=== PATIENT | female | born 1950 | race Caucasian/White ===

== ENCOUNTER 2016-10-07 19:46 | Inpatient (IN) | payer MEDICARE, OTHER ==
[2016-10-07] MEDS ORDERED: IPRATROPIUM/ALBUTEROL 3 ML VIAL NEB ONE ×2 (20:08→22:24)
--- NOTE | 2016-10-07 20:41 | RAD ---
EXAM DESCRIPTION: Chest,2 Views CLINICAL HISTORY: sob COMPARISON: June 10, 2016 FINDINGS: Cardiac silhouette is within normal limits. Aorta is tortuous. There are calcified breast implants. There is no focal parenchymal or pleural disease. There is no acute osseous process visualized. IMPRESSION: No evidence of acute cardiopulmonary disease. 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
[2016-10-07] MEDS ORDERED: cefTRIAXone SODIUM 1 GM in SODIUM CHL 0.9% 50ML MIN-BAG+ 50 ML IVPB ONE (22:25)
[2016-10-07] MEDS ORDERED: cefTRIAXone SODIUM 1 GM VIAL ONE (22:31)
[2016-10-07] MEDS ORDERED: SODIUM CHL 0.9% 50ML MIN-BAG+ 50 ML IVPB ONE (22:32)
--- NOTE | 2016-10-07 22:36 | ED.PDOC ---
History of Present Illness - General Chief Complaint: Respiratory Problem Stated Complaint: Shortness of breathe Time Seen by Provider: 10/07/16 20:08 Source: patient, family Exam Limitations: no limitations - History of Present Illness Initial Comments: The patient is a 66-year-old female presenting to the emergency room secondary to progressive shortness of breath for the last month. She apparently received a steroid injection as well as some oral antibiotics approximately a month ago from her primary care doctor. She has continued to have cough and progressive shortness of breath that has gotten worse particularly over the last 2 days. She is having a mild headache from it and significant dyspnea on exertion now. No chest pain. No palpitations. No swelling. She does smoke and has smoked for a long time. Timing/Duration: unsure, constant Severity: severe Improving Factors: nothing Worsening Factors: nothing Allergies/Adverse Reactions: Allergies NO KNOWN ALLERGY Allergy (Verified 10/07/16 20:26) Home Medications: Ambulatory Orders Acetaminophen W/ Codeine [Tylenol W/ CODEINE #3] 1 ea PO PRN PRN 10/07/16 Hydrochlorothiazide 12.5 mg PO DAILY 10/07/16 Pregabalin [Lyrica] 150 mg PO TID 10/07/16 Review of Systems - Review of Systems Constitutional: States: fever, malaise EENTM: States: nose congestion Respiratory: States: cough, short of breath, wheezing Cardiology: States: no symptoms reported Gastrointestinal/Abdominal: States: no symptoms reported Genitourinary: States: no symptoms reported Musculoskeletal: States: no symptoms reported Skin: States: no symptoms reported Neurological: States: headache - mild Hematologic/Lymphatic: States: no symptoms reported All other Systems: No Change from Baseline Past Medical History (General) - Patient Medical History Hx Seizures: No Hx Stroke: No Hx Dementia: No Hx Asthma: No Hx of COPD: Yes Hx Cardiac Disorders: No Hx Congestive Heart Failure: No Hx Pacemaker: No Hx Hypertension: Yes Hx Thyroid Disease: No Hx Diabetes: No Hx Gastroesophageal Reflux: No Hx Renal Disease: No Hx of HIV: No Hx MRSA: No Surgical History: no surgical history - Vaccination History Hx Tetanus, Diphtheria Vaccination: No Hx Influenza Vaccination: Yes Hx Pneumococcal Vaccination: No Immunizations Up to Date: Yes - Social History Hx Tobacco Use: Yes - Female History Patient is a Female of Child Bearing Age (10 -59 yrs old): No Family Medical History - Family History Father Living Status: Cause of : CT Physical Exam - Physical Exam General Appearance: Alert, Ill Appearing Eye Exam: bilateral normal Ears, Nose, Throat: hearing grossly normal, nasal congestion, pharyngeal erythema - mild Neck: non-tender, full range of motion, supple Respiratory: chest non-tender, respiratory distress, decreased breath sounds, accessory muscle use, crackles, wheezing Cardiovascular/Chest: normal peripheral pulses, regular rate, rhythm, no edema Peripheral Pulses: radial,right: 2+, radial,left: 2+, dorsalis pedis,right: 2+, dorsalis pedis,left: 2+ Gastrointestinal/Abdominal: non tender, soft Rectal Exam: deferred Back Exam: normal inspection, no CVA tenderness Extremity: normal range of motion, non-tender, normal inspection, no pedal edema , normal capillary refill Neurologic: alert, normal mood/affect, oriented x 3 Skin Exam: normal color Comments: Vital Signs - 24 hr 10/07/16 10/07/16 10/07/16 20:28 20:35 21:26 Temperature 101.7 F H Pulse Rate 87 Pulse Rate [ 84 Right Radial] Respiratory 22 18 22 Rate Blood Pressure 108/64 [Left Arm] O2 Sat by Pulse 81 L 96 Oximetry Progress - Progress Progress: 10/07/16 22:39 the patient is a 66-year-old female presenting to the emergency room secondary to shortness of breath and fever. She does appear to be having a significant COPD exacerbation with likely underlying infection whether viral or bacterial I cannot say at this time. flu test is still pending at this time. She has received a dose of Rocephin. She has also received a dose of Solu- Medrol. She has received several nebulizer treatments and is still significantly oxygen dependent. She is feeling much better with the oxygen on board. She is feeling better after the breathing treatments. Oxygen saturations without oxygen at this time are around 85% on room air. CT scan of the chest per PE protocol was negative for any evidence of a pulmonary embolus. She does have a thyroid nodule that will need follow-up with ultrasound. The patient will be admitted for treatment of the COPD exacerbation with continued antibiotics including Tamiflu if the flu turns up positive. The patient is not to smoke and understands this. critical care time for respiratory distress on this patient and clinical decision making are 35 minutes not including otherwise billable procedures. - Results/Orders Results/Orders: Laboratory Tests 10/07/16 20:09 WBC 3.6 L RBC 4.35 Hgb 13.0 Hct 38.6 MCV 88.7 MCH 29.9 MCHC 33.7 RDW 14.5 Plt Count 115 L MPV 9.3 Absolute Neuts (auto) 2.50 Absolute Lymphs (auto) 0.70 L Absolute Monos (auto) 0.40 Absolute Eos (auto) 0.00 Absolute Basos (auto) 0.00 Neutrophils % 68.5 Lymphocytes % 20.4 Monocytes % 9.7 H Eosinophils % 0.5 L Basophils % 0.9 D-Dimer, Quantitative 1078 H* Sodium 136 Potassium 3.7 Chloride 99 L Carbon Dioxide 29 Anion Gap 11.7 L BUN 17 Creatinine 0.84 BUN/Creatinine Ratio 20.2 H Random Glucose 104 Serum Osmolality 273.8 L Calcium 8.1 L Total Bilirubin 0.6 AST 25 ALT 15 Alkaline Phosphatase 51 Creatine Kinase 286 H* CK-MB (CK-2) 0.7 CK-MB (CK-2) % 0.24 Troponin I 0.02 B-Natriuretic Peptide 132.0 H Serum Total Protein 7.0 Albumin 3.3 Globulin 3.7 H Albumin/Globulin Ratio 0.9 L Chest x-rays consistent with COPD. No overt pneumonia. EKG shows normal sinus rhythm with a slightly delayed R-wave progression. No acute ST segment changes concerning for ischemia. Mild right axis deviation. Departure - Departure Clinical Impression: Hypoxemia, Respiratory distress, COPD bronchitis Disposition: Admit Patient Home Medications: Ambulatory Orders Acetaminophen W/ Codeine [Tylenol W/ CODEINE #3] 1 ea PO PRN PRN 10/07/16 Hydrochlorothiazide 12.5 mg PO DAILY 10/07/16 Pregabalin [Lyrica] 150 mg PO TID 10/07/16 Decision To Admit - Decistion To Admit Decision to Admit Reason: Medical Nature Decision to Admit Date: 10/07/16 Decision to Admit Time: 22:43
[2016-10-07] MEDS ORDERED: IBUPROFEN 200 MG TAB PO ONE (22:38)
[2016-10-07] MEDS ORDERED: LEVALBUTEROL NEBS 1.25 MG/3 ML VIAL INH PRN (23:19)
[2016-10-07] MEDS ORDERED: HYDROcodone 5MG/APAP 325MG 1 EA TAB PO PRN (23:19)
[2016-10-07] MEDS ORDERED: MAGNESIUM HYDROXIDE 30 ML UD PO PRN (23:19)
[2016-10-07] MEDS ORDERED: ONDANSETRON INJ 4 MG/2 ML VIAL IV PRN (23:19)
[2016-10-07] MEDS ORDERED: IV SET AND CAP CHANGE INJ INJ SCH (23:30)
[2016-10-07] MEDS ORDERED: IBUPROFEN 200 MG TAB PO PRN (23:38)
[2016-10-07] MEDS ORDERED: NON-FORMULARY MEDICATION 1 EA MIS (Pregabalin [Lyrica] 150 MG) PO SCH (23:45)
--- NOTE | 2016-10-07 23:57 | PCM.CORE ---
Physician DVT/VTE - Prophylaxis Currently: Patient already on anticoagulation therapy - 3-4 High Risk Treatments: Sequential Compression Device
--- NOTE | 2016-10-08 00:44 | HP ---
HISTORY OF PRESENT ILLNESS: This 66 year-old white female has been getting progressively more ill and sick with shortness of breath and severe cough for the 2 days prior to admission. She had gone to her clinic in [place] and was referred to the Emergency Room because of the severity of her symptoms. In the Emergency Room, she was found to have an elevated D-dimer and had a CT scan of the chest to rule out pulmonary emboli and none was noted. She did have significant hypoxia with room air saturation at rest of 81%. She eventually had an influenza A test that was positive while chest x-ray did not show any acute findings. She is a chronic smoker and is encouraged to stop. She is admitted to the hospital because of the constellation of symptoms as described for specific treatment and for support and followup. PAST MEDICAL HISTORY: 1. Mild hypertension. 2. Chronic obstructive pulmonary disease in a chronic smoker. PAST SURGICAL HISTORY: None. CURRENT MEDICATIONS: See list for list of verified medications taken at home. ALLERGIES: NONE. FAMILY HISTORY: Positive for strokes cancer, coronary artery disease. 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 She has smoked about a pack of cigarettes per day for the last 40 years. REVIEW OF SYSTEMS: No significant weight change but she has had some fever with her current illness. LUNGS: Significant shortness of breath with cough and exertion is difficult because of the dyspnea. CARDIOVASCULAR: Chest tightness and mild achiness in her chest from the cough. No palpitations. GASTROINTESTINAL: Appetite is decreased. No nausea, vomiting or diarrhea. GENITOURINARY: No dysuria. EXTREMITIES: No significant edema. NEUROLOGIC: No focal weaknesses or headache. PHYSICAL EXAMINATION: VITAL SIGNS: Temperature 101.7, pulse 84, blood pressure 108/64, pulse oximetry 81% on room air up to 91% on 3 liters nasal cannula. Weight is 69.8 kilos. GENERAL: The patient is fairly alert and communicative. She felt so ill that she was thinking she was getting ready to "." HEENT: Unremarkable. CHEST: Lungs have diminished breath sounds with some rhonchi more prominent on the right base compared to the left. CARDIOVASCULAR: Heart tones are a little rapid. No significant murmurs. ABDOMEN: Soft. EXTREMITIES: Well formed with good muscle tone. NEUROLOGIC: No focal neurological deficits. The patient is otherwise awake, alert and oriented, and communicative. LABORATORY: White count 3,600 with 68% neutrophils, hemoglobin 13. D-dimer 1, 078. Chemistry showed potassium 3.7, BUN 17, glucose 104, calcium 8.1. CK elevated at 286, troponin 0.02. Beta natriuretic peptide 132, albumin 3.3. Urinalysis is generally clean. Blood cultures obtained and pending. Initial chest x-ray shows no evidence of a cardiopulmonary process. DVT exams are scheduled for tomorrow after the CTA of the chest failed to reveal any significant evidence of pulmonary emboli. ASSESSMENT: 1. Chronic obstructive pulmonary disease with an acute exacerbation. 2. Severe hypoxia requiring oxygen supplementation aggravated by mild exertion. 3. History of hypertension. 4. History of chronic low back pain. 5. History of peripheral neuropathy. 6. Elevated D-dimer with no evidence of deep venous thrombosis at this time. 7. Chronic tobacco abuse, encouraged to stop. 8. Positive Influenza A contributing to the patient's constellation of symptoms. PLAN: The patient is admitted to the hospital under respiratory isolation to have specific treatment and support. She is started on low dose of corticosteroids as well as Rocephin for an underlying possible pneumonia contributing to the hypoxia. She is started on Tamiflu 75 mg b.i.d. for the next 5 days. She will continue on SCDs and Lovenox, and DVT exam in the morning. Close followup necessary. #[id number] [facility]
[2016-10-08] MEDS: IPRATROPIUM/ALBUTEROL 3 ML VIAL INH SCH ×5 (00:55→20:25)
[2016-10-08] MEDS ORDERED: PREGABALIN 75 MG CAP ONE (01:18)
[2016-10-08] MEDS: SODIUM CHLORIDE 0.9% (FLUSH) 10 ML SYG IV PRN ×3 (01:53→21:28)
[2016-10-08] MEDS: methylPREDNISolone SODIUM SUC 40 MG/ML VIAL IV SCH ×3 (01:54→21:30)
[2016-10-08] MEDS: ENOXAPARIN SODIUM 40 MG/0.4 ML SYG SUBCU SCH (01:55)
[2016-10-08] MEDS: OSELTAMIVIR 75 MG CAP PO SCH ×3 (01:56→21:28)
[2016-10-08] MEDS: KCL 20 MEQ/NS 1,000 ML IVS PRN ×2 (01:56→15:58)
[2016-10-08] MEDS: OMEPRAZOLE CAP 20 MG CAP PO SCH (06:57)
[2016-10-08] MEDS ORDERED: SODIUM CHL 0.9% 50ML MIN-BAG+ 50 ML IVPB ONE ×2 (08:46→21:10)
[2016-10-08] MEDS ORDERED: cefTRIAXone SODIUM 1 GM VIAL ONE ×2 (08:46→21:10)
--- NOTE | 2016-10-08 09:37 | US ---
EXAM DESCRIPTION: US LOWER EXTREMITY VEINS LIMITED/UNILATERAL/FOLLOW UP CLINICAL HISTORY: 66 y/o F, hypoxia,elevated d-dimer COMPARISON: None TECHNIQUE: Grayscale, color Doppler and spectral Doppler imaging of the venous structures within the leftlower extremity was performed. Static images were saved to the patient's medical record. FINDINGS: Normal compressibility and color Doppler flow within the venous structures of the left lower extremity. IMPRESSION: Negative for DVT within the left lower extremity. Electronically signed by: Raul Samuels MD 10/08/2016 09:36
--- NOTE | 2016-10-08 09:38 | US ---
EXAM DESCRIPTION: US LOWER EXTREMITY VEINS LIMITED/UNILATERAL/FOLLOW UP CLINICAL HISTORY: 66 y/o F, hypoxia,elevated d-dimer COMPARISON: None TECHNIQUE: Grayscale, color Doppler and spectral Doppler imaging of the venous structures within the rightlower extremity was performed. Static images were saved to the patient's medical record. FINDINGS: Normal compressibility and color Doppler flow within the venous structures of the right lower extremity. IMPRESSION: No evidence of DVT within the right lower extremity. Electronically signed by: Raul Samuels MD 10/08/2016 09:37
[2016-10-08] MEDS: PREGABALIN 75 MG CAP PO SCH ×3 (09:55→21:28)
[2016-10-08] MEDS: cefTRIAXone SODIUM 1 GM in SODIUM CHL 0.9% 50ML MIN-BAG+ 50 ML IVPB SCH ×2 (09:59→21:36)
[2016-10-08] MEDS ORDERED: SODIUM CHLORIDE 0.9% 10 ML VIAL IV PRN (11:17)
--- NOTE | 2016-10-08 16:03 | PN ---
DATE: 10/08/16 SUBJECTIVE: The patient is sitting up in the bed and is feeling much improved today compared to last evening when she was admitted to the hospital. Still with relative hypoxia which will be examined with ambulation studies today. Appetite is improved as well. OBJECTIVE: Afebrile, pulse 62, blood pressure 110/70, pulse oximetry 94% on nasal cannula 3 liters. Weight is stable. The patient is awake and alert, and feeling so good that she wants to even consider going home. Ambulation study is performed and shows resting room air 83% dropping to 78% when walking just to the end of the prater and back. She describes no significant dyspnea or discomfort, but is noticeably somewhat short of breath and the desaturation slowly improved, expiratory after reintroducing her to oxygen therapy. She is on no oxygen at home and will require further investigation. LUNGS: Generally clear except some rales are noted in the right base compared to the left. HEART : Tones regular. ABDOMEN: Soft. LABORATORY: White count is down to 3,200, hemoglobin 13. Chemistry showed potassium 3.9, BUN 22, creatinine 1, glucose 122, calcium 8.1. Blood studies with cultures are negative thus far. ASSESSMENT: 1. Chronic obstructive pulmonary disease with an acute exacerbation. 2. Severe hypoxemia especially aggravated upon gentle exertion. 3. History of hypertension. 4. Chronic low back pain. 5. History of peripheral neuropathy. 6. Elevated D-dimer with no evidence of deep venous thrombosis at this time after ultrasound examination of both lower extremities. 7. Chronic tobacco abuse, encouraged to stop. 8. Influenza A positive currently on Tamiflu for treatment course of 5 days. PLAN: Will reevaluate in the morning with repeat ambulation study to evaluate pulmonary functions. She may eventually require home oxygen to be used to help with tissue oxygenation. The patient has apparently been quite hypoxic for a long time and now has gotten used to it, but hopefully will be able to not get used to it if the condition can be remedied. Reevaluate and continue current IV therapy and treatment course, and reevaluate in the morning. #[id number] [facility]
[2016-10-09] MEDS: ENOXAPARIN SODIUM 40 MG/0.4 ML SYG SUBCU SCH
[2016-10-09] MEDS: KCL 20 MEQ/NS 1,000 ML IVS PRN (04:38)
[2016-10-09] MEDS: OMEPRAZOLE CAP 20 MG CAP PO SCH (06:36)
--- NOTE | 2016-10-09 07:47 | RAD ---
EXAM DESCRIPTION: XR CHEST 2 VIEWS CLINICAL HISTORY: hypoxia,fever COMPARISON: October 08, 2016 FINDINGS: The cardiomediastinal silhouette is unremarkable. There is no airspace consolidation or pleural effusion. Subsegmental atelectasis or scarring is noted in the lung bases period the lung volumes are at the upper limits of normal range period There is no pneumothorax or acute fracture. IMPRESSION: Probable COPD, but no acute intrathoracic abnormality. Electronically signed by: Dalton Monet DO 10/09/2016 07:46
[2016-10-09] MEDS ORDERED: SODIUM CHL 0.9% 50ML MIN-BAG+ 50 ML IVPB ONE (08:25)
[2016-10-09] MEDS ORDERED: cefTRIAXone SODIUM 1 GM VIAL ONE (08:26)
[2016-10-09] MEDS: IPRATROPIUM/ALBUTEROL 3 ML VIAL INH SCH ×2 (08:50→12:30)
[2016-10-09] MEDS: OSELTAMIVIR 75 MG CAP PO SCH (09:42)
[2016-10-09] MEDS: PREGABALIN 75 MG CAP PO SCH ×2 (09:42→15:30)
[2016-10-09] MEDS: methylPREDNISolone SODIUM SUC 40 MG/ML VIAL IV SCH (09:42)
[2016-10-09] MEDS: cefTRIAXone SODIUM 1 GM in SODIUM CHL 0.9% 50ML MIN-BAG+ 50 ML IVPB SCH (09:45)
[2016-10-09 10:02] VITALS: TEMP 97.9
[2016-10-09 15:09] VITALS: BP 110/65; O2SAT 92
--- NOTE | 2016-10-10 13:55 | DS ---
SUPERVISING PHYSICIAN: Raleigh Osborn MD DISCHARGE DIAGNOSIS: 1. Chronic obstructive pulmonary disease with acute exacerbation. 2. Severe hypoxemia, especially aggravated with any exertional effort and requiring oxygen. 3. History of hypertension. 4. Chronic low back pain. 5. History of peripheral neuropathy. 6. Elevated D-dimer with no evidence of deep venous thrombosis at time of admission after ultrasound examination of both lower extremities showed negative for deep venous thrombosis. 7. Chronic tobacco abuse, encouraged to stop smoking. 8. Influenza A positive, currently on Tamiflu for five day course of treatment prior to discharge. 9. Incidental finding of a nodule measuring 1.4 by 1.8 cm in the left lower lobe of the thyroid, requiring followup in the outpatient setting with ultrasound. HISTORY OF PRESENT ILLNESS: Ms. Gordon is a 66-year-old, female patient who has progressively shown worsening illness and sickness with shortness of breath, severe cough for two days prior to admission. She had gone to the clinic in [place] and was referred to the Emergency Department because of severe hypoxic symptoms. In the Emergency Room, she was found to have an elevated D-dimer and CT scan of her chest to rule out pulmonary embolism and showed no evidence of pulmonary emboli on CT study. She did have significant hypoxia on room air with saturations showing 81%. She had an influenza A test that was positive, but chest x-ray failed to show any acute findings initially on admission. She has a history of chronic smoking and was encouraged to stop smoking. She was admitted to the hospital because of conflation of symptoms as described above for specific treatment and followup. She was admitted in stable condition. LABORATORY: Initial white count on admission was 3.6, hemoglobin 13, hematocrit 38.6. At discharge after treatment with Tamiflu and antibiotics, white count was 9.2, hemoglobin 12.3, hematocrit 37.0, platelet count stable at 115,000. Differential did show a left shift, however, the patient had been started on corticosteroids. Chemistries on admission showed normal electrolytes with potassium 3.7, BUN 17, creatinine 0.84. BNP was slightly elevated at 132, creatinine kinase elevated 286. Troponin 0.02. All other functions were within normal limits. Calcium 8.2 at time of discharge and electrolytes continued to be within normal limits with potassium 4.4, BUN 18, creatinine 0.47. Urinalysis was within normal limits except just a trace of protein and trace ketones. MICROBIOLOGY: Blood culture remained negative at 24 hours at discharge. Influenza A and B antigen rapid exam was positive for influenza A antigen. RADIOLOGY: Chest x-ray on admission initially per radiology interpretation showed no evidence of acute cardiopulmonary disease. This was followed up with CT of the chest to rule out pulmonary embolism and per radiology interpretation showed no visualization of filling defects in the main pulmonary trunks, main right or left pulmonary arteries, or the lower branches to suggest pulmonary embolism. There was noted bilateral pulmonary arteries being normal caliber. No evidence of any ventricular septal deviation or filling defects in the cardiac chambers. There were no discrete airspace infiltrates, pneumothorax, or pleural effusions. There were underlying changes of chronic obstructive pulmonary disease with evidence of peripheral honeycombing in bilateral lungs and incidental note made of bilateral breast prostheses with peripheral prosthetic calcifications. Additionally noted, there was a 1.4 by 1.8 cm nodule in the left lower lobe of the thyroid which can be further assessed in the outpatient setting with ultrasound examination. Followup chest x-ray on date of discharge per radiology interpretation showed probable chronic obstructive pulmonary disease, but no other intrathoracic abnormalities. She did have bilateral lower extremity ultrasound and per radiology interpretation, there was no evidence of DVT either on the left or right leg. HOSPITAL COURSE: Ms. Gordon is a 66-year-old, female patient who as noted in history of present illness was admitted for exacerbation of chronic obstructive pulmonary disease with a longstanding history of smoking and current positive influenza A infection. She was admitted for further treatment and started on Rocephin, DuoNeb breathing treatments and Solu-Medrol, as well as continuation of Tamiflu. The patient clinically improved. She did have an ambulation study on the morning of discharge indicating she was satting 88% prior to ambulation on room air. During ambulation, she dropped down to 85% and required O2 2 liters nasal cannula and after rest saturation was 95%. Vital signs showed T-max was 101.7 at initial admission, however, after treatment initiation, she remained afebrile. Clinically, the patient is improved and has been set up for oxygen at home and was felt well enough to be continued on outpatient treatment plan with Tamiflu as well as routine antibiotic coverage for concerns for possible early pneumonia in a patient with influenza A and a longstanding history of smoking. PLAN: Ms. Gordon was discharged on 10/09/16 with close clinical followup scheduled with her primary care provider, Chiquita Cruz, in [place] on 10/23/16 at 10:30 AM, or sooner if needed. She was instructed to resume all her previous medications prior to admission and start new prescriptions on date of discharge as instructed. She was again encouraged to stop smoking and utilize nicotine system as discussed for assistance with smoking cessation. She was to have close clinical followup to help with continued smoking cessation efforts. She was encouraged to increase her activity as tolerated and wear oxygen that was arranged through [facility] 2 liter nasal cannula as directed and to smoke at any time while wearing oxygen. She was instructed to return to the hospital if she should have worsening or no improvement in her symptoms. At discharge, she was given new prescriptions to include: 1. Albuterol nebulizers 2.5 mg per 3 mL, #30, q.4h. p.r.n. as needed. 2. Nicotine transdermal [id number] system. 3. Cefdinir 300 mg twice daily, #10. 4. Prednisone tapering Dosepak of 10 mg, #12, 40 mg x1 day, 30 mg x1 day, 20 mg x1 day, then 10 mg until all gone. 5. ProAir inhaler 2 puffs as needed q.6h. for shortness of breath, 1 inhaler, 1 refill. 6. Tamiflu 75 mg twice daily, #6, for a total of 5 day treatment. 7. Zithromax Z-Giovanni, #1 giovanni, instructed to take as directed. All other medications are to be continued as previous to admission. She was continued on antibiotic therapy given that she had an influenza test positive and was significant for longstanding history of chronic obstructive pulmonary disease with smoking with concerns for possible post influenza pneumonia development. She was instructed to continue diet as tolerated. At time of discharge, condition was good, she was stable. #[id number] [facility]
--- NOTE | 2016-10-16 13:45 | RAD ---
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 The lungs are otherwise clear without focal consolidation or pleural effusion. The heart is normal in size. The mediastinal contours are normal in appearance.There are bilateral calcified breast prosthesis in place.The thoracic spine is age appropriate. The shoulders are unremarkable. Limited evaluation of the upper abdomen demonstrates no gross abnormalities. Impression: 1. No acute cardiopulmonary disease (stable appearing chest).2. Stable emphysema. Electronically signed by: Fiordaliza Bethea MD 10/08/2016 6:59 AM DRIVING TEACHER
--- NOTE | 2016-10-21 00:10 | RAD ---
EXAM DESCRIPTION: Chest,2 Views CLINICAL HISTORY: sob COMPARISON: June 10, 2016 FINDINGS: Cardiac silhouette is within normal limits. Aorta is tortuous. There are calcified breast implants. There is no focal parenchymal or pleural disease. There is no acute osseous process visualized. IMPRESSION: No evidence of acute cardiopulmonary disease. 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
--- NOTE | 2016-10-21 00:10 | CT ---
PROCEDURE: CTA Chest Clinical History: PE protocol ddimer>1000, hypoxic 82% Indication: Same as above Comparison: None Technique: CT of the chest was done with intravenous contrast followed by CT angiography of the pulmonary arteries. Coronal, Sagittal and 3D volumetric MIP reconstructions were generated from the acquired data. The patient was injected with contrast intravenously, without any documented immediate adverse reactions. Total DLP: 539.78 mGy*cm. Findings: There is no visualization of filling defects in the main pulmonary trunk, main right and left pulmonary arteries or their lower order branches to suggest pulmonary embolism. The bilateral main pulmonary arteries are normal in caliber. There is no evidence of interventricular septal deviation or filling defects in the cardiac chambers. There are no discrete airspace infiltrates, pneumothoraces or pleural effusions. There are underlying changes of COPD, with evidence of peripheral honeycombing in the bilateral lungs Incidental note is made of bilateral breast prosthesis with peripheral prosthetic calcifications. Note is made of a 1.4 x 1.8 cm nodule in the left lower lobe of the thyroid, which can be further assessed with an ultrasound examination The trachea, bilateral mainstem bronchi and the bilateral main segmental bronchi are patent without any intraluminal mass lesions. There is no gross evidence of clinically significant thoracic aortic aneurysm or thoracic aortic dissection. There is no clinically significant pericardial effusion. There are no pathologically enlarged lymph nodes in the mediastinum, bilateral hilar, bilateral supraclavicular or the bilateral axillary regions. The thoracic bony rib cage appears grossly unremarkable. The visualized thoracic spine is unremarkable. Limited evaluation of the evaluated upper abdomen does not show any gross abnormalities. Impression: There is no pulmonary embolism or airspace infiltrates or pleural effusions. There are underlying changes of COPD, with evidence of peripheral honeycombing in the bilateral lungs Note is made of a 1.4 x 1.8 cm nodule in the left lower lobe of the thyroid, which can be further assessed with an ultrasound examination Location of Interpretation: Teleradiology Electronically signed by: Aaron Gaines MD 10/07/2016 10:03 PM [employer]
--- NOTE | 2016-10-21 00:11 | RAD ---
Clinical History : hypoxia, fever , MAIN Exam : PA and lateral views of the chest 10/08/2016 12:00 AM [employer] Comparisons : CT pulmonary angiogram October 07, 2016PA and lateral views of the chest October 07, 2016 Findings : Stable emphysematous changes are noted throughout the lungs bilaterally.There is flattening of the diaphragms . The lungs are otherwise clear without focal consolidation or pleural effusion. The heart is normal in size. The mediastinal contours are normal in appearance.There are bilateral calcified breast prosthesis in place.The thoracic spine is age appropriate. The shoulders are unremarkable. Limited evaluation of the upper abdomen demonstrates no gross abnormalities. Impression: 1. No acute cardiopulmonary disease (stable appearing chest).2. Stable emphysema. Electronically signed by: Fiordaliza Bethea MD 10/08/2016 6:59 AM [employer]
== END 2016-10-09 15:30 | disposition home or self-care (01) | DRG 192 ==
LOC: ER 19:46 → MS 10-08 00:43 → OBSVTOIN 10-08 00:43
PROVIDERS: ADMIT Emergency Medicine; ATTEND Nurse Practitioner Family
PROC: B32TYZZ Computerized Tomography (CT Scan) of Left Pulmonary Artery using Other Contrast (ICD-10-PCS; principal; 2016-10-08)
PROC: B32SYZZ Computerized Tomography (CT Scan) of Right Pulmonary Artery using Other Contrast (ICD-10-PCS; 2016-10-08)
DX: J44.1 Chronic obstructive pulmonary disease with (acute) exacerbation (principal); J09.X2 Influenza due to identified novel influenza A virus with other respiratory manifestations; R09.02 Hypoxemia; J44.0 Chronic obstructive pulmonary disease with (acute) lower respiratory infection; J40 Bronchitis, not specified as acute or chronic; I10 Essential (primary) hypertension; G89.29 Other chronic pain; M54.5 Low back pain; G62.9 Polyneuropathy, unspecified; F17.210 Nicotine dependence, cigarettes, uncomplicated; Z79.899 Other long term (current) drug therapy

== ENCOUNTER 2017-04-05 15:02 | Emergency (ER) | payer MEDICARE, OTHER ==
[2017-04-05 15:18] VITALS: TEMP 97.1; O2SAT 96
[2017-04-05] MEDS ORDERED: TENECTEPLASE 50 MG VIAL IV ONE (15:24)
--- NOTE | 2017-04-05 15:26 | RAD ---
PROCEDURE: XR CHEST 1 VIEW HISTORY: suspected stemi COMPARISON: October 09, 2016 TECHNIQUE: Single projection of the chest was done. FINDINGS: Note is again made of peripherally calcified bilateral breast prosthesis . There are no discrete airspace infiltrates, pneumothoraces or pleural effusions. The pulmonary vascularity is normal. The cardiomediastinal silhouette is unremarkable for patient's age and sex. IMPRESSION: There is no acute pleural-parenchymal process seen in the imaged lung hampton. Location of Interpretation: Teleradiology Electronically signed by: Aaron Gaines MD 04/05/2017 3:25 PM CDT Workstation: [id number]
[2017-04-05] MEDS ORDERED: EPINEPHrine INJ 0.1 MG/ML 10 ML SYG IV ONE (15:30)
[2017-04-05] MEDS ORDERED: HEPARIN SODIUM (PORCINE) 5,000 U/ML VIAL IV ONE (15:33)
[2017-04-05] MEDS ORDERED: CLOPIDOGREL 75 MG TAB PO ONE (15:35)
[2017-04-05] MEDS ORDERED: SODIUM CHLORIDE 0.9% 1000ML 250 ML IVS ONE (15:47)
--- NOTE | 2017-04-05 15:47 | ED.PDOC ---
History of Present Illness - General Chief Complaint: Chest Pain/[place] Stated Complaint: chest pressure Time Seen by Provider: 04/05/17 15:03 Source: patient Exam Limitations: no limitations - History of Present Illness Initial Comments: the patient is a 66-year-old female presenting to the emergency room secondary to chest pain that started approximately 30 minutes prior to her calling EMS. The patient has no definitive cardiac history but was actually scheduled to see a pullman conductor in the recent past but did not go to the appointment. She apparently does have some history of high blood pressure and some chronic back pain. She started developing a pressure type chest pain without nausea. She was not doing any particularly stressful activity during the time. No vomiting. No syncope but she does feel significantly dizzy and fatigued. Systolic blood pressures were in the 80s upon arrival by EMS. The patient is oriented. She is not feeling palpitations but limited monitoring shows heart rates ranging from the mid 40s to the upper 60s. She does appear to be dropping QRS complexes intermittently after P waves. No definitive pattern there. Timing/Duration: 1/2 hour Severity: moderate Improving Factors: nothing Worsening Factors: nothing Allergies/Adverse Reactions: Allergies NO KNOWN ALLERGY Allergy (Verified 10/07/16 20:26) Home Medications: Ambulatory Orders Acetaminophen W/ Codeine [Tylenol W/ CODEINE #3] 1 ea PO PRN PRN 10/07/16 Hydrochlorothiazide 12.5 mg PO DAILY 10/07/16 Pregabalin [Lyrica] 150 mg PO TID 10/07/16 Albuterol Sulfate Nebs [Proventil Nebs] 2.5 mg INH Q4HR PRN #30 vial 10/09/16 Albuterol Sulfate [Proair Hfa] 2 puff INH Q6H PRN #1 10/09/16 Azithromycin [Zithromax Z-Giovanni] 1 pack PO DAILY #1 pack 10/09/16 Cefdinir [Omnicef] 300 mg PO BID #10 cap 10/09/16 Nicotine [Nicotine Transdermal Syst 21-14-7 mg/24Hr] 1 kit TD DAILY #1 kit 10/09 Oseltamivir Capsule [Tamiflu] 75 mg PO BID #6 cap 10/09/16 predniSONE [Prednisone] 10 mg PO DAILY #12 tab 10/09/16 Review of Systems - Review of Systems Constitutional: States: malaise, weakness EENTM: States: no symptoms reported Respiratory: States: short of breath - mild Cardiology: States: chest pain Gastrointestinal/Abdominal: States: no symptoms reported Genitourinary: States: no symptoms reported Musculoskeletal: States: no symptoms reported Skin: States: no symptoms reported Neurological: States: weakness - generalized Endocrine: States: no symptoms reported All other Systems: No Change from Baseline Past Medical History (General) - Patient Medical History Hx Seizures: No Hx Stroke: No Hx Dementia: No Hx Asthma: No Hx of COPD: Yes Hx Cardiac Disorders: No Hx Congestive Heart Failure: No Hx Pacemaker: No Hx Hypertension: Yes Hx Thyroid Disease: No Hx Diabetes: No Hx Gastroesophageal Reflux: No Hx Renal Disease: No Hx of HIV: No Hx MRSA: No - Vaccination History Hx Tetanus, Diphtheria Vaccination: No Hx Influenza Vaccination: Yes Hx Pneumococcal Vaccination: No - Social History Hx Tobacco Use: Yes Hx Alcohol Use: No Hx Substance Use: No Hx Physical Abuse: No Hx Emotional Abuse: No Family Medical History - Family History Father Living Status: Cause of : [place] Hx Family Asthma: No Hx Family Congestive Heart Failure: Yes Hx Family Hypertension: Yes Hx Family Stroke: No Hx Cardiac Disease: Yes Hx Family Diabetes: No Hx Family Cancer: No Physical Exam - Physical Exam General Appearance: Alert, Other - drowsy Eye Exam: bilateral normal Ears, Nose, Throat: hearing grossly normal, normal ENT inspection, normal pharynx Neck: non-tender, full range of motion, supple Respiratory: chest non-tender, lungs clear, normal breath sounds, no respiratory distress, no accessory muscle use Cardiovascular/Chest: normal peripheral pulses, no edema, bradycardia - somewhat irregular Peripheral Pulses: radial,right: 2+, radial,left: 2+, dorsalis pedis,right: 2+, dorsalis pedis,left: 2+ Gastrointestinal/Abdominal: non tender, soft Rectal Exam: deferred Back Exam: normal inspection, no CVA tenderness, no vertebral tenderness Extremity: normal range of motion, non-tender, normal inspection, no pedal edema 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 Blood pressures have been somewhat low. She has received several small fluid boluses. Her chest pain is improving but is not gone. She is receiving oxygen, she has received aspirin, she has received heparin, Plavix and TNKase. The patient is being transferred to [facility] for cardiology intervention. The patient has been discussed with Dr. Smith. Due to arrhythmia pads will be kept in place on her chest. Pain medications will be given as necessary. - Results/Orders Results/Orders: 04/05/17 14:36 B-TYPE NATRIURETIC PEPTIDE/BNP Stat still pending CARDIAC ENZYME GROUP Stat till pending COMPLETE METABOLIC PROFILE Stat 04/05/17 15:15 EKG STAT sinus bradycardia with intermittent dropped QRS complexes. There is a first degree AV block, at times there appears to be a second-degree AV block. There are definitive ST segment elevations in lead 2, 3 [address]VF. There are ST segment depressions in aVL, V2 and V3. chest x-ray shows no definitive acute pathology. 04/05/17 15:47 Sodium Chloride 0.9% 1000ML [Ns 1000 ml] 250 ml IVS ONCE Laboratory Results - last 24 hr 04/05/17 04/05/17 04/05/17 14:36 14:36 14:36 WBC 11.7 H RBC 4.84 Hgb 14.3 Hct 43.2 MCV 89.2 MCH 29.6 MCHC 33.2 RDW 14.3 Plt Count 197 MPV 10.3 Absolute Neuts (auto) 6.20 Absolute Lymphs (auto) 4.00 H Absolute Monos (auto) 0.90 H Absolute Eos (auto) 0.50 H Absolute Basos (auto) 0.10 Neutrophils % 53.0 Lymphocytes % 34.1 Monocytes % 7.7 Eosinophils % 4.4 Basophils % 0.8 PT 11.5 INR 1.020 PTT (SP) 28.6 D-Dimer, Quantitative 708 H* Sodium 142 Potassium 3.5 L Chloride 103 Carbon Dioxide 28 Anion Gap 14.5 Calcium 9.4 Magnesium 04/05/17 14:36 WBC RBC Hgb Hct MCV MCH MCHC RDW Plt Count MPV Absolute Neuts (auto) Absolute Lymphs (auto) Absolute Monos (auto) Absolute Eos (auto) Absolute Basos (auto) Neutrophils % Lymphocytes % Monocytes % Eosinophils % Basophils % PT INR PTT (SP) D-Dimer, Quantitative Sodium Potassium Chloride Carbon Dioxide Anion Gap Calcium Magnesium 2.1 Departure - Departure Clinical Impression: STEMI (ST elevation myocardial infarction) Qualifiers: Involved coronary artery: unspecified coronary artery Qualified Code(s): I21.3 - ST elevation (STEMI) myocardial infarction of unspecified site Disposition: Transfer to Hospital Condition: Serious Home Medications: Ambulatory Orders Acetaminophen W/ Codeine [Tylenol W/ CODEINE #3] 1 ea PO PRN PRN 10/07/16 Hydrochlorothiazide 12.5 mg PO DAILY 10/07/16 Pregabalin [Lyrica] 150 mg PO TID 10/07/16 Albuterol Sulfate Nebs [Proventil Nebs] 2.5 mg INH Q4HR PRN #30 vial 10/09/16 Albuterol Sulfate [Proair Hfa] 2 puff INH Q6H PRN #1 10/09/16 Azithromycin [Zithromax Z-Giovanni] 1 pack PO DAILY #1 pack 10/09/16 Cefdinir [Omnicef] 300 mg PO BID #10 cap 10/09/16 Nicotine [Nicotine Transdermal Syst 21-14-7 mg/24Hr] 1 kit TD DAILY #1 kit 10/09 Oseltamivir Capsule [Tamiflu] 75 mg PO BID #6 cap 10/09/16 predniSONE [Prednisone] 10 mg PO DAILY #12 tab 10/09/16 Transfer to Outside Facility - Transfer Information Accepting Provider:: dr albrecht/ dr smith Accepting Facility: [facility] 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
[2017-04-05] MEDS ORDERED: HEPARIN PREMIX 25,000 UNITS in PREMIX BAG 1 BAG IVS SCH (16:00)
[2017-04-05] MEDS ORDERED: HEPARIN PREMIX 500 ML ONE ×2 (16:04→16:15)
[2017-04-05] MEDS ORDERED: NOREPINEPHRINE BITARTRATE 4 MG/4 ML VIAL IVPB ONE (16:12)
[2017-04-05] MEDS ORDERED: DEXTROSE 5% 250ML 250 ML ONE (16:14)
[2017-04-05] MEDS ORDERED: ONDANSETRON INJ 4 MG/2 ML VIAL ONE (16:19)
[2017-04-05 16:54] VITALS: BP 84/62
[2017-04-05] MEDS ORDERED: ONDANSETRON INJ 4 MG/2 ML VIAL IV ONE (16:55)
[2017-04-05] MEDS ORDERED: NOREPINEPHRINE BITARTRATE 4 MG in DEXTROSE 5% 250ML 250 ML IVPB SCH (17:00)
== END 2017-04-05 16:35 | disposition short-term general hospital (02) ==
LOC: ER 15:02
DX: I21.3 ST elevation (STEMI) myocardial infarction of unspecified site (principal); R11.2 Nausea with vomiting, unspecified; J44.9 Chronic obstructive pulmonary disease, unspecified; I10 Essential (primary) hypertension; Z82.49 Family history of ischemic heart disease and other diseases of the circulatory system; Z79.899 Other long term (current) drug therapy; Z87.891 Personal history of nicotine dependence
CPT/HCPCS: 36415; 71010; 80053; 82550; 82553; 83735; 83880; 84484; 85025; 85379; 85610; 85730; 93005; J1644; J2405; J3101; J7030; J7060

== ENCOUNTER 2018-01-09 07:19 | Emergency (ER) | payer MEDICARE, OTHER ==
[2018-01-09 07:33] VITALS: TEMP 98.2
--- NOTE | 2018-01-09 07:47 | ED.PDOC ---
History of Present Illness - General Chief Complaint: Respiratory Problem Stated Complaint: shortness of breath Time Seen by Provider: 01/09/18 07:42 Source: patient, family Exam Limitations: no limitations Additional Information: THIS PATIENT COMES TO THE ED WITH SOB, ONSET LAST NIGHT. SHE VOICES THAT SOON SHE FELL ASLEEP SHE FELT SOB AND HAD A TOUGH NIGHT. DENIES FEVER OR COUGH. SHE HAS A HX OF CAD, HAD AN [place] ONE YEAR YEAR AGO AND HAS ONE STENT. HER DIRECT CARE PROFESSIONAL IS DR. SHAFER. SHE ALSO HAS HTN. THE PATIENT HAS BEEN OF LASIX 20 DAILY AND TWO WEEKS AGO WAS TOLD TO STOP THE DIURETIC. NOW HER LEGS ARE SWOLLEN. - History of Present Illness Timing/Duration: 7-24 hours Severity: moderate Possible Cause: no prior episodes Improving Factors: nothing Worsening Factors: nothing Associated Symptoms: denies symptoms Respiratory Risk Factors: no cause identified Allergies/Adverse Reactions: Allergies NO KNOWN ALLERGY Allergy (Verified 10/07/16 20:26) Home Medications: Ambulatory Orders Acetaminophen W/ Codeine [Tylenol W/ CODEINE #3] 1 ea PO PRN PRN 10/07/16 Pregabalin [Lyrica] 150 mg PO QAM 10/07/16 Albuterol Sulfate Nebs [Proventil Nebs] 2.5 mg INH Q4HR PRN #30 vial 10/09/16 Albuterol Sulfate [Proair Hfa] 2 puff INH Q6H PRN #1 10/09/16 Albuterol Inhaler [Ventolin Hfa Inhaler] 2 puff INH Q6HR 30 Days inh 01/09/18 Aspirin [Aspirin EC] 81 mg PO DAILY 01/09/18 Atorvastatin Calcium [Lipitor] 20 mg PO BEDTIME 01/09/18 Clopidogrel Bisulfate [Plavix] 75 mg PO QD 01/09/18 Furosemide [Lasix] 20 mg PO DAILY 01/09/18 Lisinopril 10 mg PO BEDTIME 01/09/18 Metoprolol Succinate [Metoprolol Succinate ER] 25 mg PO DAILY 01/09/18 Pregabalin [Lyrica] 300 mg PO BEDTIME 01/09/18 Umeclidinium-Vilanterol [Anoro Ellipta 62.5-25 Mcg/INH] 1 aer IN DAILY 01/09/18 Review of Systems - Review of Systems Constitutional: States: no symptoms reported EENTM: States: no symptoms reported Respiratory: States: orthopnea, short of breath Cardiology: States: edema Gastrointestinal/Abdominal: States: no symptoms reported Genitourinary: States: no symptoms reported Musculoskeletal: States: no symptoms reported Skin: States: no symptoms reported Neurological: States: no symptoms reported Endocrine: States: no symptoms reported Hematologic/Lymphatic: States: no symptoms reported Past Medical History (General) - Patient Medical History Hx Seizures: No Hx Stroke: No Hx Dementia: No Hx Asthma: No Hx of COPD: Yes Hx Cardiac Disorders: Yes - [place] Hx Congestive Heart Failure: No Hx Pacemaker: No Hx Hypertension: Yes Hx Thyroid Disease: No Hx Diabetes: No Hx Gastroesophageal Reflux: No Hx Renal Disease: No Hx of HIV: No Hx MRSA: No - Vaccination History Hx Tetanus, Diphtheria Vaccination: No Hx Influenza Vaccination: No Hx Pneumococcal Vaccination: Yes - Social History Hx Tobacco Use: Yes Hx Alcohol Use: No Hx Substance Use: No Hx Physical Abuse: No Hx Emotional Abuse: No Family Medical History - Family History Father Living Status: Cause of : [place] Hx Family Asthma: No Hx Family Congestive Heart Failure: Yes Hx Family Hypertension: Yes Hx Family Stroke: No Hx Cardiac Disease: Yes Hx Family Diabetes: No Hx Family Cancer: No Physical Exam - Physical Exam General Appearance: Alert, Comfortable, No apparent distress, Well Developed, Well Groomed Eyes, Ears, Nose, Throat Exam: PERRL/EOMI, normal ENT inspection, pharynx normal Neck: non-tender, supple, other - NO JVD Respiratory: lungs clear, no respiratory distress, no accessory muscle use Cardiovascular/Chest: normal peripheral pulses, regular rate, rhythm, no JVD, no murmur Peripheral Pulses: radial,right: 2+, radial,left: 2+, dorsalis pedis,right: 2+, dorsalis pedis,left: 2+ Gastrointestinal/Abdominal: normal bowel sounds, non tender, soft, no organomegaly, no pulsatile mass Rectal Exam: deferred Extremity: pedal edema - 2+ EDEMA 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 SHAFER: HE VOICES THAT SHE HAS COPD AND CORPULMONALE. WILL NEED A PULMONARY CONSULTATION. CT ANGIO NEGATIVE FOR PE. - Results/Orders Results/Orders: HR OF 63, IA INTERVAL OF 176, QRS OF 82, QTC OF 417, AXIS OF 51 DEGREES. IMPRESSION: SINUS RHYTHM, NO INJURY PATTERN. Lab and imaging are ported: CXR: NO ACUTE PROCESS D-DIMER IS ELEVATED AT 469, BNP ELEVATED 563 PLAN: LASIX [address] ANGIO OF THE CHEST Departure - Departure Clinical Impression: Cor pulmonale (chronic) Congestive heart failure Qualifiers: Congestive heart failure type: diastolic Congestive heart failure chronicity: chronic Qualified Code(s): I50.32 - Chronic diastolic (congestive) heart failure COPD (chronic obstructive pulmonary disease) Qualifiers: COPD type: unspecified COPD Qualified Code(s): J44.9 - Chronic obstructive pulmonary disease, unspecified Time of Disposition: 10:20 Condition: Fair Departure Forms: ED Discharge - Pt. Copy, Patient Portal Self Enrollment Instructions: Chronic Obstructive Pulmonary Disease (Alternative Therapy) Referrals: JAEL JOY,PAULIE Diaz [Primary Care Provider] - 1-2 Weeks Prescriptions: Albuterol Inhaler [Ventolin Hfa Inhaler] 2 puff INH Q6HR 30 Days inh Home Medications: Ambulatory Orders Acetaminophen W/ Codeine [Tylenol W/ CODEINE #3] 1 ea PO PRN PRN 10/07/16 Pregabalin [Lyrica] 150 mg PO QAM 10/07/16 Albuterol Sulfate Nebs [Proventil Nebs] 2.5 mg INH Q4HR PRN #30 vial 10/09/16 Albuterol Sulfate [Proair Hfa] 2 puff INH Q6H PRN #1 10/09/16 Albuterol Inhaler [Ventolin Hfa Inhaler] 2 puff INH Q6HR 30 Days inh 01/09/18 Aspirin [Aspirin EC] 81 mg PO DAILY 01/09/18 Atorvastatin Calcium [Lipitor] 20 mg PO BEDTIME 01/09/18 Clopidogrel Bisulfate [Plavix] 75 mg PO QD 01/09/18 Furosemide [Lasix] 20 mg PO DAILY 01/09/18 Lisinopril 10 mg PO BEDTIME 01/09/18 Metoprolol Succinate [Metoprolol Succinate ER] 25 mg PO DAILY 01/09/18 Pregabalin [Lyrica] 300 mg PO BEDTIME 01/09/18 Umeclidinium-Vilanterol [Anoro Ellipta 62.5-25 Mcg/INH] 1 aer IN DAILY 01/09/18
--- NOTE | 2018-01-09 08:04 | RAD ---
EXAM DESCRIPTION: Chest,1 View CLINICAL HISTORY: 67 years Female, shortness of breath COMPARISON: April 05, 2017 TECHNIQUE: AP portable chest. FINDINGS: Fair expansion of the lungs is evident without consolidation, layering effusion, or large mass. Heart size and vascularity appear normal for AP technique and degree of inspiration. No gross bony, hilar, or mediastinal abnormalities are noted. IMPRESSION: Normal chest, one view Electronically signed by: Siddhartha Garcia MD 01/09/2018 8:03 AM CDT
[2018-01-09] MEDS ORDERED: FUROSEMIDE INJ 40 MG/4 ML VIAL IV ONE (08:19)
[2018-01-09 08:45] VITALS: O2SAT 93
[2018-01-09] MEDS ORDERED: HYDROcodone 10MG/APAP 325MG 1 EA TAB PO ONE (09:22)
--- NOTE | 2018-01-09 09:51 | CT ---
EXAM DESCRIPTION: CTA Chest CLINICAL HISTORY: shortness of breath, elevated d-dimer COMPARISON: October 07, 2016 TECHNIQUE: Postcontrast CT images of the chest are obtained using pulmonary embolism imaging protocol. Three-D MIP reconstructed images of the arterial vasculature are obtained. Coronal and sagittal reconstructed images of the also provided. This exam was performed according to our departmental dose-optimization program, which includes automated exposure control, adjustment of the mA and/or kV according to patient size and/or use of iterative reconstruction technique . FINDINGS: Exam again demonstrates a 19 mm transverse low-attenuation nodule in the left lobe of the thyroid. The heart is enlarged. Moderate coronary artery calcifications are seen. Enlargement of the main pulmonary artery is seen measuring at least 4.2 cm compared to the adjacent ascending thoracic aorta measuring 3.8 cm. This could represent pulmonary artery hypertension. No definite filling defects or emboli are seen in the pulmonary arteries. No pathologically enlarged mediastinal, hilar, or axillary lymphadenopathy seen. Bilateral breast implants with moderate peripheral calcifications are again seen. No pleural or pericardial effusion. Visualized upper abdomen shows no acute findings. The lungs are hypoaerated pulmonary vascularity is mildly prominent. There are areas of geographic groundglass attenuation throughout the lungs with mild peripheral increased interstitial thickening. Mild peripheral honeycombing in the lung hampton is again seen ingesting chronic interstitial fibrotic disease. Osseous structures show no aggressive bony lesions. IMPRESSION: No CT evidence of pulmonary embolism. Stable cardiomegaly with coronary artery disease. Enlarged main pulmonary arteries could represent pulmonary artery hypertension. Lungs are hypoaerated with areas of probable air trapping or atelectasis bilaterally. Chronic interstitial changes are again noted. Incidental thyroid nodule measuring 19 mm is seen. Recommend further evaluation with dedicated ultrasound of the thyroid not previously performed. Electronically signed by: Robel Duarte MD 01/09/2018 9:49 AM CDT
[2018-01-09 10:45] VITALS: BP 125/85
== END 2018-01-09 10:45 | disposition home or self-care (01) ==
LOC: ER 07:19
DX: I27.81 Cor pulmonale (chronic) (principal); J44.9 Chronic obstructive pulmonary disease, unspecified; I25.2 Old myocardial infarction; I11.0 Hypertensive heart disease with heart failure; I50.32 Chronic diastolic (congestive) heart failure; Z79.82 Long term (current) use of aspirin; Z79.02 Long term (current) use of antithrombotics/antiplatelets; Z87.891 Personal history of nicotine dependence
CPT/HCPCS: 36415; 71045; 71275; 80053; 83880; 84484; 85025; 85379; 93005; J1940

== ENCOUNTER → 2018-01-26 | Outpatient (CLI) | payer MEDICARE, OTHER | LOC: GMAM 17:19 | PROVIDERS: ATTEND Family Medicine | DX: I50.32 Chronic diastolic (congestive) heart failure (principal) ==

== ENCOUNTER → 2018-01-29 | Outpatient (CLI) | payer MEDICARE, OTHER ==
--- NOTE | 2018-01-29 20:56 | US ---
THYROID ULTRASOUND CLINICAL INFORMATION: Partial visualization of a nodule in the left lobe of the thyroid gland on cross-sectional imaging TECHNIQUE: Routine transcutaneous scannin-D and Doppler modes. COMPARISON: CTA of the chest 01/09/2018. FINDINGS: Thyroid size: Right 3.8 x 1.5 x 1.4 cm. Left 4.6 x 2.4 x 2.0 cm. Isthmus 2.0 mm thickness. Texture: Heterogeneous. Estimated total number of nodules >/=1 cm: 0 Number of spongiform nodules >/=2 cm not described below (TR1): 0 Number of mixed cystic and solid nodules >/=1.5 cm not described below (TR2): 0 Nodule #: 1 Maximum size: 2.6 cm; All dimensions 2.1 x 1.9 cm Location: left; mid Composition: solid/almost completely solid (2). Vascular periphery. Echogenicity: hypoechoic (2) Shape: not [id number] (0) Margins: smooth (0) Echogenic foci: none (0) ACR TI-RADS total points: 4. ACR TI-RADS risk category: TR4 (4-6 points) ACR TI-RADS recommendation: Ultrasound-guided fine needle aspiration Nodule #: 2 Maximum size: 1.4 cm; All dimensions 0.9 x 0.7 cm Location: right; mid Composition: solid/almost completely solid (2) Echogenicity: hypoechoic (2) Shape: not hreqce-gisf-wawc (0) Margins: smooth (0) Echogenic foci: large comet-tail artifacts (0) ACR TI-RADS total points: 4. ACR TI-RADS risk category: TR4 (4-6 points) ACR TI-RADS recommendation: Follow-up ultrasound in 1 year Nodule #: 3 Maximum size: 1.1 cm; All dimensions 0.9 x 0.6 cm Location: left; upper Composition: solid/almost completely solid (2) Echogenicity: hypoechoic (2) Shape: not [id number]-tvbv (0) Margins: smooth (0) Echogenic foci: none (0) ACR TI-RADS total points: 4. ACR TI-RADS risk category: TR4 (4-6 points) ACR TI-RADS recommendation: Follow-up ultrasound in 1 year The soft tissues around the thyroid gland show no evidence of distinct solid mass or cyst. No parenchymal edema or large calcifications. No overlying skin changes. No abnormal vascularity. IMPRESSION: 1. 2.6 cm solid nodule in the mid left lobe is hypoechoic with ACR TI RADS risk category TR 4. Because of large size, ultrasound-guided fine-needle aspiration sampling is recommended. Please see below.* 2. Bilateral hypoechoic solid nodules between 1 cm and 1.5 cm in greatest diameter. ACR TI RADS risk category TR 4. Ultrasound follow-up in one year is recommended. 3. Soft tissue surrounding the thyroid gland are unremarkable. *ACR TI-RADS recommendations: TR5 (>/=7 points) - FNA if >/=1 cm, follow-up if 0.5 - 0.9 cm every year for 5 years TR4 (4-6 points) - FNA if >/=1.5 cm, follow-up if 1 - 1.4 cm in 1, 2, 3 and 5 years TR3 (3 points) - FNA if >/=2.5 cm, follow -up if 1.5 - 2.4 cm in 1, 3 and 5 years TR2 (2 points) and TR1 (0 points) - No FNA or follow-up ACR TI-RADS recommends that no more than two nodules with the highest ACR TI-RADS total point should be biopsied and no more than four nodules should be followed. Electronically signed by: Jung Velasquez MD 01/29/2018 8:55 PM CDT
== END ==
LOC: US 09:53
PROVIDERS: ATTEND Family Medicine
DX: E04.1 Nontoxic single thyroid nodule (principal)

== ENCOUNTER → 2018-02-12 | Outpatient (CLI) | payer MEDICARE, OTHER ==
--- NOTE | 2018-02-12 11:19 | US ---
Thyroid Ultrasound Biopsy CLINICAL INFORMATION: Left thyroid nodule is ACR TI RADS risk category TR 4 with ultrasound-guided thyroid biopsy recommended. TECHNIQUE: Procedure was explained to the patient with risks and benefits. The patient gave verbal and written consent. Sterile preparation draping. 1% xylocaine dermal anesthetic 9-1 mixture with sodium bicarbonate. Sterile ultrasound guidance. A total of 6 passes left thyroid nodule; 3 needle samplings with a separate 1.5 inch, 25-gauge needle per sample, and 3 aspirations, with a separate 1.5 inch, 25-gauge needle/10-cc syringe set, per aspiration. Each sample was placed on a separate slide and fixed in 95% alcohol container. Saccomanno fluid drawn into aspirate needle and rinse injected into Saccomanno container. Specimens to be sent for pathologic examination at remote facility. . Patient tolerated procedure well. Biopsy #: 1 Nodule reference number based on prior diagnostic ultrasound:1 Maximum size: 2.3 cm Location: left; mid ACR TI-RADS risk category: TR4 (4-6 points) Reason for biopsy: meets ACR TI-RADS criteria Complications: None. IMPRESSION: Successful ultrasound guided fine needle aspiration of left thyroid nodule. Pathology results pending at remote facility. Electronically signed by: Jung Velasquez MD 02/12/2018 11:18 AM CDT
== END ==
LOC: US 08:51
PROVIDERS: ATTEND Family Medicine
DX: E04.1 Nontoxic single thyroid nodule (principal)

== ENCOUNTER → 2018-03-27 | Outpatient (CLI) | payer MEDICARE, OTHER ==
--- NOTE | 2018-03-27 14:24 | MRI ---
EXAM DESCRIPTION: Lumbar Spine w/o Contrast : Magnetic Resonance Imaging. CLINICAL HISTORY: LOWER BACK PAIN. Right lower extremity radiculopathy. Difficulty bending forward. COMPARISON: None. TECHNIQUE: Multiplanar, multiple standard sequences, non contrast MRI, lumbar spine. FINDINGS: L5-S1: Disc desiccation and moderate disc space loss more anterior. Anterior disc bulging and endplate spurs. Posterior minimal midline disc bulge not abutting the thecal sac. Canal is patent. Minimal arthrosis bilateral facets. Moderate bilateral foraminal narrowing. L4-5: Minimal disc desiccation and minimal disc space loss. Trace anterior and posterior disc bulging. Bilateral flavum ligament hypertrophy. Minimal canal narrowing. Bilateral mild foraminal narrowing more on the right. L3-4: Minimal disc desiccation. Posterior flavum ligament hypertrophy and minimal facet arthrosis bilaterally. Mild canal narrowing. Bilateral foramina are patent. L2-3: Normal signal in the disc and disc space preserved. Posterior elements unremarkable. Canal and foramina are patent. L1-2: Normal signal in the disc and disc space preserved. Posterior elements unremarkable. Canal and foramina are patent. T12-L1: Normal signal in the disc and disc space preserved. Posterior elements are unremarkable. Canal and foramina are patent. Conus terminates at this level. Anatomic alignment. Paravertebral soft tissues Muscle atrophy paraspinal bilaterally. . Normal marrow signal in the remaining vertebral bodies and the posterior elements. Vertebral bodies are not compressed at any level. IMPRESSION: 1. Disc desiccation L5-S1 and posterior minimal disc bulge. Moderate bilateral foraminal narrowing mild canal narrowing at L4-5 and L3-4. Bilateral mild foraminal narrowing L4-5. No canal or foraminal stenosis at any level. Electronically signed by: Jung Velasquez MD 03/27/2018 2:23 PM CDT
== END ==
LOC: MRI 07:48
PROVIDERS: ATTEND Family Medicine
DX: M51.27 Other intervertebral disc displacement, lumbosacral region (principal)

== ENCOUNTER → 2018-10-09 | Outpatient (CLI) | payer MEDICARE, OTHER | LOC: GMAM 10:39 | PROVIDERS: ATTEND Family Medicine | DX: E04.1 Nontoxic single thyroid nodule (principal) ==

== ENCOUNTER → 2018-10-12 | Outpatient (CLI) | payer MEDICARE, OTHER | LOC: GMAM 17:47 | PROVIDERS: ATTEND Family Medicine | DX: D64.9 Anemia, unspecified (principal) ==

== ENCOUNTER → 2018-11-06 | Outpatient (CLI) | payer MEDICARE, OTHER ==
--- NOTE | 2018-11-06 16:16 | US ---
US THYROID CLINICAL STATEMENT: THYROID NODULE. . No palpable mass. No previous thyroid surgery or therapy. COMPARISON: None TECHNIQUE: Transcutaneous scanning, grayscale and Doppler modes. FINDINGS: Size right thyroid lobe: 4.5 x 1.4 x 1.0 cm Size left thyroid lobe: 3.9 x 2.4 x 1.7 cm Size isthmus: 0.2 cm Estimated total number of nodules greater than or equal to 1 cm: 3 Nodule 1: Size: 2.3 x 2.0 x 1.9 cm Location: Left Mid Composition: solid or almost completely solid: 2 points. Increased vascularity on the periphery. Echogenicity: hypoechoic: 2 points Shape: wider than tall: 0 points Margins: smooth: 0 points. Margins are very hypoechoic. Echogenic foci: none: 0 points ACR Total Points: 4; ACR TI-RADS risk category: TR4 - moderately suspicious nodule. Nodule 2: Size: 1.2 x 0.8 x 0.6 cm Location: Right Mid Composition: solid or almost completely solid: 2 points Echogenicity: hypoechoic: 2 points Shape: wider than tall: 0 points Margins: smooth: 0 points Echogenic foci: none: 0 points ACR Total Points: 4; ACR TI-RADS risk category: TR4 - moderately suspicious nodule. Nodule 3: Size: 1.0 x 0.6 x 0.5 cm Location: Left Upper Composition: solid or almost completely solid: 2 points Echogenicity: hypoechoic: 2 points Shape: wider than tall: 0 points Margins: smooth: 0 points Echogenic foci: none: 0 points. ACR Total Points: 4; ACR TI-RADS risk category: TR4 - moderately suspicious nodule. The soft tissue around the thyroid gland shows no evidence of distinct cyst or dominant solid mass. No parenchymal edema or large calcifications. No overlying skin changes. Normal vascularity. IMPRESSION: 1. Nodule 1: ACR TI-RADS 2017 Category TR4. Recommend: Ultrasound-guided fine needle aspiration. Recommendations based upon [facility] Best Practice recommendations and ACR TI-RADS 2017 guidelines. Please see below*. 2. Nodule 2: ACR TI-RADS 2017 Category TR4. Recommend: Follow-up ultrasound in 1 year. 3. Nodule 3: ACR TI-RADS 2017 Category TR4. Recommend: Follow-up ultrasound in 1 year. 4. The soft tissue around the thyroid gland is unremarkable. *ACR TI-RADS 2017 Recommendations: TR1: No FNA or follow up TR2: No FNA or follow up TR3: FNA if >/= 2.5 cm, follow up if 1.5 - 2.4 cm in 1, 3, and 5 years TR4: FNA if >/= 1.5 cm, follow up if 1.0 - 1.4 cm in 1, 2, 3, and 5 years TR5: FNA if >/= 1.0 cm, follow up if 0.5 - 0.9 cm every year for 5 years ACR TI-RADS recommends that no more than two nodules with the highest ACR TI-RADS total point should be biopsied and no more than four nodules should be followed. These recommendations do not apply to patients with increased risk for thyroid cancer or patients with symptomatic thyroid disease. Electronically signed by: Jung Velasquez MD 11/06/2018 4:12 PM CDT
== END ==
LOC: US 13:30
PROVIDERS: ATTEND Family Medicine
DX: E04.1 Nontoxic single thyroid nodule (principal)

== ENCOUNTER → 2018-11-10 | Outpatient (CLI) | payer MEDICARE, OTHER | LOC: GMAM 14:49 | PROVIDERS: ATTEND Family Medicine | DX: R79.9 Abnormal finding of blood chemistry, unspecified (principal) ==

== ENCOUNTER 2019-01-20 07:45 | Day surgery (SDC) | payer MEDICARE, OTHER ==
[2019-01-20] MEDS: LACTATED RINGERS 1,000 ML ONE (07:55)
--- NOTE | 2019-01-20 08:43 | OP ---
DATE OF PROCEDURE: 01/20/19 PREOPERATIVE DIAGNOSIS: 1. Family history of colorectal cancer. POSTOPERATIVE DIAGNOSIS: 1. Colonic polyp. 2. Colonic diverticulosis. 3. Internal hemorrhoids. PROCEDURE: 1. Colonoscopy with polypectomy. SURGEON: Moisés Iyer MD ANESTHESIA: Monitored anesthesia care. ESTIMATED BLOOD LOSS: Less than 5 mL. COMPLICATIONS: None. PROCEDURE: The patient was placed in the left lateral decubitus position. A time-out was performed. After deep sedation was achieved, the Olympus adult colonoscope was inserted through anus, into the rectum and advanced to the cecum under direct visualization with some difficulty due to increased sigmoid tortuosity. The cecum was identified by the ileocecal valve, appendiceal orifice and the terminal ileum. The endoscope was then progressively withdrawn and the total colonic lumen evaluated. The patient's bowel preparation was good. Retroflexion was performed in the rectum. The endoscope was then withdrawn and the procedure terminated. The patient tolerated the procedure well with no immediate complications. FINDINGS: 1. One polyp, sessile in nature, measuring 3 to 4 mm, was seen in the cecum. This polyp was removed with a cold snare and retrieved for pathology. 2. Mild to moderate colonic diverticulosis with small and medium sized diverticula were seen in the sigmoid colon with associated angulation and narrowing. There was no evidence of inflammation or bleeding. 3. Grade 2 non-bleeding internal hemorrhoids with hypertrophied anal papilla were were seen upon retroflexion in the rectum. IMPRESSION: 1. Colonic polyp, removed. 2. Sigmoid colonic diverticulosis. 3. Internal hemorrhoids. RECOMMENDATIONS: 1. Okay to discharge home once the patient meets discharge criteria. 2. Resume prior diet. 3. Resume home medications. 4. Repeat colonoscopy in 5 years for surveillance given the patient's family history and the presence of a colonic polyp today. 5. Followup in GI clinic with Dr. Iyer in 3 months. [id number]
[2019-01-20 09:27] VITALS: BP 120/79; TEMP 98.6; O2SAT 97
[2019-01-20] MEDS ORDERED: LIDOCAINE 1% 10 ML VIAL INJ ONE (10:00)
[2019-01-20] MEDS ORDERED: PROPOFOL 200 MG/20 ML VIAL IV ONE (10:00)
== END 2019-01-20 09:15 | disposition home or self-care (01) ==
LOC: AMB 07:45
PROVIDERS: ATTEND Internal Medicine Gastroenterology
DX: Z12.11 Encounter for screening for malignant neoplasm of colon (principal); D12.0 Benign neoplasm of cecum; K63.5 Polyp of colon; K57.30 Diverticulosis of large intestine without perforation or abscess without bleeding; K64.1 Second degree hemorrhoids; Z80.0 Family history of malignant neoplasm of digestive organs
CPT/HCPCS: 00812; 45385; 88305; J3490; J7120

== ENCOUNTER → 2019-04-13 | Outpatient (CLI) | payer MEDICARE, OTHER | LOC: GMAM 11:23 | PROVIDERS: ATTEND Family Medicine | DX: D64.9 Anemia, unspecified (principal); E04.1 Nontoxic single thyroid nodule; I10 Essential (primary) hypertension; R73.9 Hyperglycemia, unspecified ==

== ENCOUNTER → 2020-05-08 | Outpatient (CLI) | payer MEDICARE, OTHER | LOC: GMAM 11:41 | PROVIDERS: ATTEND Family Medicine | DX: D64.9 Anemia, unspecified (principal); E04.1 Nontoxic single thyroid nodule; I10 Essential (primary) hypertension; R73.9 Hyperglycemia, unspecified ==